=== PATIENT | male | born 1990 | race Two or more races ===

== ENCOUNTER 2022-01-05 16:01 | Emergency (ER) | payer SELFPAY ==
[~2022-01-05] VITALS: Ht 193 cm; Wt 178.1 kg
[2022-01-05 16:17] VITALS: BP 153/83
[2022-01-05] MEDS ORDERED: methylPREDNISolone SOD SUCC 125 MG/2 ML VL IM ONE (16:30)
[2022-01-05] MEDS ORDERED: cefTRIAXone SOD 1,000 MG VL IM ONE (16:30)
[2022-01-05] MEDS ORDERED: LIDOCAINE VISCOUS 2% 15ML UD PO ONE (16:30)
[2022-01-05] MEDS ORDERED: AZIT500T66 PO (17:00)
[2022-01-05] MEDS ORDERED: PRED20TA2 PO (17:00)
== END 2022-01-05 17:10 | disposition home or self-care (01) ==
LOC: ER 16:01
DX: J03.90 Acute tonsillitis, unspecified (principal); F17.210 Nicotine dependence, cigarettes, uncomplicated; F12.10 Cannabis abuse, uncomplicated
CPT/HCPCS: 96374; 96375; 99284; J0696; J2930